=== PATIENT | female | born 1955 | race Caucasian/White ===

== ENCOUNTER 2018-02-09 04:40 | Observation (INO) | payer MEDICAID, OTHER ==
--- NOTE | 2018-02-09 04:54 | ED PDOC ---
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 Pain began 1 hour ago and is associated with nausea and vomiting x1. Pain is stabbing in nature, non radiating and began while sleeping. Pain rated at 10/ 10. Patient was hospitalized for chest pain in 2016 and had negative cardiac work up at that time. Patient refused recommendation of inpatient stress test at that time, and has not received one since. Patient sees Dr. Oneal for cardiology but has not seen him in 9 years since pacemaker placement per patient. Denies abdominal pain, headaches, fevers, and chills. (Angel Chowdary) Past Medical History - Provider Review Nursing Documentation Reviewed: Yes - Infectious Disease Hx of Infectious Diseases: None - Cardiac Hx Hypertension: Yes - Pulmonary Hx Respiratory Disorders: No - Neurological Hx Neurological Disorder: No - HEENT Hx HEENT Disorder: No - Renal Hx Renal Disorder: No - Endocrine/Metabolic Hx Diabetes Mellitus Type 2: Yes - Hematological/Oncological Hx Blood Disorders: No - Integumentary Hx Dermatological Disorder: No - Musculoskeletal/Rheumatological Hx Back Pain: Yes (Chronic back pain) Hx Falls: No - Gastrointestinal Hx Gastrointestinal Disorders: No - Genitourinary/Gynecological Hx Genitourinary Disorders: No - Psychiatric Hx Depression: No Hx Emotional Abuse: No Hx Physical Abuse: No Hx Substance Use: No - Anesthesia Hx Anesthesia: No - Suicidal Assessment Feels Threatened In Home Enviroment: No Family/Social History - Physician Review Nursing Documentation Reviewed: Yes Family/Social History: Unknown Family HX Smoking Status: Never Smoked Hx Alcohol Use: No Hx Substance Use: No Hx Substance Use Treatment: No Allergies/Home Meds Allergies/Adverse Reactions: Allergies No Known Allergies Allergy (Verified 02/09/18 04:45) Home Medications: Home Meds Medication Instructions Recorded Confirmed Glimepiride [Amaryl] 4 mg PO BID 06/05/16 02/09/18 Losartan/Hydrochlorothiazide 1 each PO DAILY 06/05/16 02/10/18 [Losartan-Hctz 100-25 mg Tab] metFORMIN [glucOPHAGE] 1,000 mg PO BID 06/05/16 02/09/18 traMADol [Ultram] 50 mg PO QID 06/05/16 02/09/18 Review of Systems - Physician Review All systems were reviewed & negative as marked: Yes - Review of Systems Constitutional: Normal Eyes: Normal ENT: Normal Respiratory: SOB Cardiovascular: Chest Pain. absent: Palpitations Gastrointestinal: Normal. absent: Abdominal Pain Musculoskeletal: Normal Skin: Normal Neurological: Normal Endocrine: Normal Hemo/Lymphatic: Normal Psychiatric: Normal Physical Exam Vital Signs Reviewed: Yes Temperature: Afebrile Blood Pressure: Hypertensive Pulse: Regular Respiratory Rate: Normal Appearance: Positive for: Well-Appearing, Non-Toxic, Comfortable Pain Distress: None Mental Status: Positive for: Alert and Oriented X 3 - Systems Exam Head: Present: Atraumatic, Normocephalic Pupils: Present: PERRL Extroacular Muscles: Present: EOMI Conjunctiva: Present: Normal Mouth: Present: Moist Mucous Membranes Neck: Present: Normal Range of Motion Respiratory/Chest: Present: Clear to Auscultation, Good Air Exchange. No: Respiratory Distress, Accessory Muscle Use Cardiovascular: Present: Regular Rate and Rhythm, Normal S1, S2, Peripheal Pulses Present. No: Murmurs, Tachycardic Abdomen: No: Tenderness, Distention, Peritoneal Signs Back: Present: Normal Inspection Upper Extremity: Present: Normal Inspection. No: Cyanosis, Edema Lower Extremity: Present: Normal Inspection. No: Edema Neurological: Present: Speech Normal, Motor Func Grossly Intact, Normal Sensory Function Skin: Present: Warm, Dry, Normal Color. No: Rashes Psychiatric: Present: Alert, Oriented x 3, Normal Insight, Normal Concentration Vital Signs Temp Pulse Resp BP Pulse Ox 02/09/18 05:07 85 16 162/79 H 98 02/09/18 04:54 98.3 F 82 16 187/93 H 98 02/09/18 04:51 98.2 F 85 18 187/93 H 99 Medical Decision Making ED Course and Treatment: Impression: Pt seen and evaluated with medical records field technician. Aware and agree with HPI, clinical findings, plan, and management. Pt, whose past medical history includes pacemaker, hypertension, and diabetes, who presents to the Emergency department complaining of chest pain x1 hour with associated nausea and vomiting. Plan: -- Labs, troponin -- Zofran -- Reassess and disposition (Mitch Mc) Impression: This is a 63 year old female with PMH of HT, pacemaker placed in 2008, and DM2 presenting to ED via ambulance for chest pain. Plan: -CBC, CMP -EKG -Troponins Progress: EKG: rate of 89, KS of 220, QRS of 186. No ST changes. 02/09/18 06:11 Patient is resting comfortably, no pain, stable vital signs. (Angel Chowdary) - Lab Interpretations Lab Results: 02/09/18 04:45 02/09/18 04:45 Lab Results 02/09/18 04:45: Hemoglobin A1c 7.8 H 02/09/18 04:45: NT-Pro-B Natriuret Pep 70.6, Triglycerides 241 H, Cholesterol 260 H, LDL Cholesterol Direct 163 H, HDL Cholesterol 41 02/09/18 04:45: Sodium 144, Potassium 4.0, Chloride 99, Carbon Dioxide 29, Anion Gap 20, BUN 23 H, Creatinine 0.7, Est GFR ( Amer) > 60, Est GFR ( Non-Af Amer) > 60, Random Glucose 102, Calcium 10.0, Total Bilirubin 0.5, AST 24 , ALT 33, Alkaline Phosphatase 50, Troponin I < 0.01, Total Protein 8.3, Albumin 4.6, Globulin 3.6, Albumin/Globulin Ratio 1.3 02/09/18 04:45: WBC 10.9 D, RBC 4.88, Hgb 13.9, Hct 41.1, MCV 84.2, MCH 28.5, MCHC 33.8, RDW 13.4, Plt Count 369, MPV 9.4, Gran % 35.8 L, Lymph % (Auto) 51.6 H, [place] % (Auto) 9.2 H, Eos % (Auto) 3.0, Baso % (Auto) 0.4, Gran # 3.91, Lymph # (Auto) 5.6 H, [place] # (Auto) 1.0 H, Eos # (Auto) 0.3, Baso # (Auto) 0.04 - RAD Interpretation Radiology Orders: 02/09/18 04:50 CHEST PORTABLE [RAD] Stat - Medication Orders Current Medication Orders: Aspirin (Aspirin Chewable) 81 mg PO DAILY [facility] Last Admin: 02/10/18 09:05 Dose: 81 mg Atorvastatin Calcium (Lipitor) 80 mg PO DIN [facility] Hydrochlorothiazide (Hydrodiuril) 25 mg PO DAILY [facility] Last Admin: 02/10/18 09:05 Dose: 25 mg Insulin Human Regular (Humulin R Med) 0 units SC ACHS [facility] PRN Reason: Protocol Last Admin: 02/10/18 12:25 Dose: 3 unit [facility] Blood Glucose Document 02/10/18 12:25 (Rec: 02/10/18 12:25 [facility]-[id number]) Blood Glucose Finger Stick Blood Glucose (70-120) 234 Subcutaneous Administrations Document 02/10/18 12:25 (Rec: 02/10/18 12:25 [facility]-[id number]) Charges for Administration # of Subcutaneous Administrations 1 Losartan Potassium (Cozaar) 100 mg PO DAILY [facility] Last Admin: 02/10/18 09:07 Dose: 100 mg Metoprolol Tartrate (Lopressor) 25 mg PO BID [facility] Last Admin: 02/10/18 09:06 Dose: 25 mg [facility] Pulse and Blood Pressure Document 02/10/18 09:06 (Rec: 02/10/18 09:06 [id number] Pulse Pulse Rate (60-90) 73 Blood Pressure Blood Pressure (100/60-150/90) 125/53 Pantoprazole Sodium (Protonix Ec Tab) 40 mg PO ACB [facility] Tramadol HCl (Ultram) 50 mg PO QID [facility] Last Admin: 02/10/18 09:05 Dose: 50 mg MAR Pain Assessment Document 02/10/18 09:05 (Rec: 02/10/18 09:06 [id number] Pain Reassessment Is this a pain reassessment? Yes Presence of Pain Presence of Pain Yes Location Upper or Lower Lower Pain Location Body Site Back Re-Assess: MAR Pain Assessment Document 02/10/18 10:05 (Rec: 02/10/18 11:26 [id number] Pain Reassessment Is this a pain reassessment? Yes Presence of Pain Presence of Pain No Discontinued Medications Atorvastatin Calcium (Lipitor) 40 mg PO DIN [facility] Last Admin: 02/09/18 17:03 Dose: 40 mg Ondansetron HCl (Zofran Inj) 4 mg IVP STAT STA Stop: 07/09/18 04:59 Last Admin: 02/09/18 05:11 Dose: 4 mg IVP Administration Document 02/09/18 05:11 SS (Rec: 02/09/18 05:11 SS [id number]) Charges for Administration # of IVP Administrations 1 Pantoprazole Sodium (Protonix Inj) 40 mg IVP DAILY [facility] Last Admin: 02/10/18 09:05 Dose: 40 mg IVP Administration Document 02/10/18 09:05 (Rec: 02/10/18 09:05 [id number]) Charges for Administration # of IVP Administrations 1 JANIA Risk Score for UA/NSTEMI - JANIA Risk Score Age > 64: NO 3 or more CAD Risk Factors: YES Known CAD (Stenosis greater than 50%): NO Aspirin use in past 7 days: NO Severe Angina: YES EKG ST changes greater than 0.5mm: NO Positive Cardiac Marker: NO JANIA Score: 2 % risk at 14 days of: all cause mortality, new or recurrent [place], or severe recurrent ischemia requiring urgen revascularization: 8% - PA / FIELD ORGANIZER / Resident Statement /DO has reviewed & agrees with the documentation as recorded. MD/DO has examined the patient and agrees with the treatment plan. Disposition/Present on Arrival - Present on Arrival Any Indicators Present on Arrival: No History of DVT/PE: No History of Uncontrolled Diabetes: No Urinary Catheter: No History of Decub. Ulcer: No History Surgical Site Infection Following: None - Disposition Have Diagnosis and Disposition been Completed?: Yes Disposition Time: 08:00 - Disposition Diagnosis: Chest pain Disposition: HOSPITALIZED Patient Problems: Current Active Problems Problem Status Onset Bradycardia Chronic Diabetes mellitus Chronic Diabetic neuropathy associated with type 2 diabetes mellitus Chronic Hyperlipidemia Chronic Hypertension Chronic Condition: GOOD
[2018-02-09 05:19] LABS: ALB/GLOB RATIO 1.3 (1.1-1.8); ALBUMIN 4.6 g/dL (3.0-4.8); ALT/SGPT 33 U/L (7-56); AST/SGOT 24 U/L (14-36); BLOOD UREA NITROGEN 23 mg/dL (7-21); GFR AFRICAN-AMERICAN > 60; GFR NON-AFRICAN AMERICAN > 60
[2018-02-09 05:27] LABS: BASO # 0.04 K/mm3 (0.0-2.0); BASO % 0.4 % (0.0-3.0); EOS # 0.3 (0.0-0.7); GRAN # 3.91 (1.4-6.5); GRAN % 35.8 % (50.0-68.0); HEMOGLOBIN 13.9 g/dL (12.0-16.0); LYMPH # 5.6 (1.2-3.4); LYMPH % 51.6 % (22.0-35.0); MEAN CELL VOLUME 84.2 fl (80.0-105.0); MEAN CORPUSCULAR HEMOGLOBIN 28.5 pg (25.0-35.0); MEAN CORPUSCULAR HGB CONC 33.8 g/dl (31.0-37.0); MEAN PLATELET VOLUME 9.4 fl (7.0-11.0); MONO % 9.2 % (1.0-6.0); RBC 4.88 10^6/uL (3.5-6.1); RED CELL DISTRIBUTION WIDTH 13.4 % (11.5-14.5); WHITE BLOOD COUNT 10.9 10^3/ul (4.5-11.0)
[2018-02-09 05:30] LABS: TROPONIN I < 0.01 ng/mL
--- NOTE | 2018-02-09 07:38 | CP.PCM.HP ---
<Parish Joseph - Last Filed: 02/09/18 16:02> History of Present Illness - History of Present Illness History of Present Illness: Parish Joseph DO - PGY 1 Internal Medicine Rehabilitation Services Counselor - Medicine H&P CC: Chest Pain since this morning 63F w/ PMH of Bradycardia s/p biventricular pacemaker placement @ [facility], DM2, HLD , and HTN presented to ED this AM w/ CC of CP which awoke her from sleep. On admission, patient characterized CP as stabbing, generalized to bilateral sternal border, w/ associated nausea, x1 NBNB vomit, and dyspnea. Sje was previously seen in 2016 for c/o chest pain; cardiac work up at that [facility] was negative except for echo findings Grade 1 abnormal relaxation, and mild pulmonary hypertension. Pt's daughter called EMS and gave 3 aspirin. EKG performed in ED unremarkable ; CXR in ED unremarkable; 1st troponin negative. Patient was evaluated at bedside in ED; states that CP and SOB had resolved at time of evaluation voicing no other complaints at this time. Upon ROS pt denies, PINTO, BV, CP, Palp, Cough, SOB, Abd Pain, NVDC, Limb weakness. Does admit to: LE Edema and orthopnea x6mo PMD: Dr. Teressa Cristobal PMH: as above PSH: pacemaker insertion SH: denies smoking, EtOH or illicits FH: noncontributory Meds: reviewed Allergies: NKA Present on Admission - Present on Admission Any Indicators Present on Admission: No Review of Systems - Constitutional Constitutional: absent: Chills, Fever - EENT Eyes: absent: Blurred Vision - Cardiovascular Cardiovascular: Leg Edema, Orthopnea, Pedal Edema. absent: Chest Pain, Diaphoresis, Dyspnea, Dyspnea on Exertion - Respiratory Respiratory: absent: Cough, Dyspnea - Gastrointestinal Gastrointestinal: absent: Abdominal Pain, Constipation, Diarrhea, Nausea, Vomiting - Musculoskeletal Musculoskeletal: absent: Muscle Weakness, Numbness - Neurological Neurological: Numbness (Chronic x years in toes ). absent: Focal Weakness Past Patient History - Infectious Disease Hx of Infectious Diseases: None - Past Medical History & Family History Past Medical History?: Yes Past Family History: Reviewed and not pertinent - Past Social History Smoking Status: Never Smoked Alcohol: None Drugs: Denies Home Situation {Lives}: With Family - CARDIAC Hx Cardiac Disorders: Yes Hx Hypertension: Yes - PULMONARY Hx Respiratory Disorders: No - NEUROLOGICAL Hx Neurological Disorder: No - HEENT Hx HEENT Problems: No - RENAL Hx Chronic Kidney Disease: No - ENDOCRINE/METABOLIC Hx Diabetes Mellitus Type 2: Yes - HEMATOLOGICAL/ONCOLOGICAL Hx Blood Disorders: No - INTEGUMENTARY Hx Dermatological Problems: No - MUSCULOSKELETAL/RHEUMATOLOGICAL Hx Back Pain: Yes (Chronic back pain) Hx Falls: No - GASTROINTESTINAL Hx Gastrointestinal Disorders: No - GENITOURINARY/GYNECOLOGICAL Hx Genitourinary Disorders: No - PSYCHIATRIC Hx Depression: No Hx Emotional Abuse: No Hx Physical Abuse: No Hx Substance Use: No - ANESTHESIA Hx Anesthesia: No Meds Allergies/Adverse Reactions: Allergies Allergy/AdvReac Type Severity Reaction Status Date / Time No Known Allergies Allergy Verified 02/09/18 04:45 Physical Exam - Constitutional Appears: Well, Non-toxic, No Acute Distress - Head Exam Head Exam: ATRAUMATIC, NORMOCEPHALIC - Eye Exam Eye Exam: EOMI, PERRL. absent: Scleral icterus - ENT Exam ENT Exam: Mucous Membranes Moist Additional comments: dentures - Neck Exam Additional comments: No carotid bruit - Respiratory Exam Respiratory Exam: Clear to Auscultation Bilateral, NORMAL BREATHING PATTERN. absent: Rhonchi, Wheezes - Cardiovascular Exam Cardiovascular Exam: REGULAR RHYTHM, +S1, +S2 - GI/Abdominal Exam GI & Abdominal Exam: Soft. absent: Tenderness - Extremities Exam Extremities exam: Positive for: pedal pulses present (difficult to palpate ) Additional comments: 1+ nonpitting edema BL - Neurological Exam Neurological exam: Alert, CN II-XII Intact, Oriented x3 - Psychiatric Exam Psychiatric exam: Normal Affect, Normal Mood - Skin Skin Exam: Dry, Warm Results - Vital Signs Recent Vital Signs: Last Vital Signs Temp 98.3 F 02/09/18 04:54 Pulse 85 02/09/18 05:07 Resp 16 02/09/18 05:07 BP 162/79 H 02/09/18 05:07 Pulse Ox 98 02/09/18 05:07 - Labs Result Diagrams: 02/09/18 04:45 02/09/18 04:45 Assessment & Plan (2) Bradycardia Status: Chronic (3) Diabetes mellitus Status: Chronic (4) Hypertension Status: Chronic (5) Hyperlipidemia Status: Chronic (6) Diabetic neuropathy associated with type 2 diabetes mellitus Status: Chronic - Assessment and Plan (Free Text) Assessment: 63F w/ PMH of HLD, HTN, DM, and bradycardia s/p pacemaker presenting on 02/09 w/ CC of CP and Dyspnea. Plan: 1. Chest Pain r/o ACS EKG on admission unremarkable for ischemic changes compared to previous; did show ventricular paced rhythm CXR wnl Tropnin negative x1 Continue trending troponin Echo 2016 read as grade 1 abnormal relaxation, mild pulm htn pro-BNP 70.6 ECHO pending TSH pending Stress EKG pending Cardiology consulted 2. Bradycardia s/p BV pacemaker placement Pt. reports no cardiac follow up in many years Cardiology consulted 3. DM Hold home Glimepiride 4 QD Start ISS medium w/ accuchecks A1C 7.8 4. HTN Cont home Losartan-HCTZ 100-25 QD Monitor Vitals Q4 5. HLD Lipid Panel elevated triglycerides, LDL, and total cholesterol ASCVD 20% LFTs wnl, Start Atorvastin 40 QD GI/ SCD Ppx: Protonix + SCD Dispo: monitoring patient under obs for any s/s of ACS continue cardiac work up. Pt. will follow up w/ Dr. Cristobal upon DC Case seen and discussed w/ attending Dr. Adilson Joseph DO - PGY1 Internal Medicine Resident - [id number] <Krysta De Anda - Last Filed: 02/11/18 13:38> Results - Vital Signs Recent Vital Signs: Last Vital Signs Temp 98.2 F 02/10/18 06:00 Pulse 73 02/10/18 09:06 Resp 20 02/10/18 06:00 BP 125/53 L 02/10/18 09:06 Pulse Ox 73 L 02/10/18 09:00 - Labs Result Diagrams: 02/10/18 06:00 02/10/18 06:00 Attending/Attestation - Attestation I have personally seen and examined this patient.: Yes I have fully participated in the care of the patient.: Yes I have reviewed all pertinent clinical information: Yes Notes (Text): 02/11/18 13:35 Medical record note made by the resident after discussion with my direction and input after the patient was personally seen and examined by me. I have reviewed the chart and agree that the record accurately reflects by personal performance of the history, physical exam, data review, and medical decision-making, in the course for the patient. I have also personally directed the plan of care. 63F with PMH , DM2, HLD, and HTN,sp pacemaker is admitted with atypical chest pain, has chest wall tenderness, initial troponins are normnalk.Patient has been evaluated by cardiology and is undergoing nuclear stress test, we will follow up result.We will also follow up Echo.
--- NOTE | 2018-02-09 08:16 | CARD ---
APPROVED REPORT EKG Measurement Heart [id number] <Conclusion> Electronic ventricular pacemaker: 100 % V. Paced and A. Sensed.
[2018-02-09 08:47] LABS: B-TYPE NATRIURETIC PEPTIDE 70.6 pg/mL (0-450)
--- NOTE | 2018-02-09 10:26 | RAD ---
HISTORY: chest pain COMPARISON: Comparison chest 06/05/2016 FINDINGS: LUNGS: No active pulmonary disease. PLEURA: No significant pleural effusion identified, no pneumothorax apparent. CARDIOVASCULAR: Heart size normal. No change bipolar pacemaker/tubercle OSSEOUS STRUCTURES: Old healed fracture deformity left mid clavicle. Degenerative changes both shoulder girdles. Mild multilevel degenerative spondylosis of the thoracic spine VISUALIZED UPPER ABDOMEN: Normal. OTHER FINDINGS: None. IMPRESSION: No active disease.
[2018-02-09 10:57] VITALS: BMI 24.7
[2018-02-09] MEDS ORDERED: Aminophylline 25 mg/ml Inj ONE (11:11)
[2018-02-09] MEDS: Insulin Reg-MEDIUM-Coverage SC SCH ×3 (11:30→23:02)
--- NOTE | 2018-02-09 15:41 | CARD ---
APPROVED REPORT EKG Measurement Heart [id number] <Conclusion> Atrial sensed, ventricular paced rhythm
--- NOTE | 2018-02-09 17:14 | CARD ---
APPROVED REPORT EXAM: Two-dimensional and M-mode echocardiogram with Doppler and color Doppler. INDICATION LV Function:SystolicDiastolic Chest Pain 2D DIMENSIONS Left Atrium (2D)4.1 (1.6-4.0cm)IVSd1.4 (0.7-1.1cm) LVDd4.5 (3.9-5.9cm)PWd1.3 (0.7-1.1cm) LVDs3.1 (2.5-4.0cm)FS (%) 32.4 % LVEF (%)60.8 (>50%) M-Mode DIMENSIONS Aortic Root2.90 (2.2-3.7cm)Aortic Cusp Exc.1.90 (1.5-2.0cm) Aortic Valve AoV Peak Rqbpnkcy719.0cm/Martínez Peak GR.9mmHgAI P 1/2 [id number] Mitral Valve E/A ratio0.0 TDI E/Lateral E'0.0E/Medial E'0.0 Tricuspid Valve TR Peak [id number]/sRAP [id number] Peak Gr.25mmHg [id number] LEFT VENTRICLE The left ventricle is normal size. There is mild concentric left ventricular hypertrophy. The left ventricular function is normal.EF-55-60% There is normal LV segmental wall motion. Transmitral Doppler flow pattern is Grade III-reversible restrictive diastolic dysfunction. No left ventricle thrombus noted on this study. There is no ventricular septal defect visualized. There is no left ventricular aneurysm. There is no mass noted in the left ventricle. RIGHT VENTRICLE The right ventricle is normal size. There is normal right ventricular wall thickness. The right ventricular systolic function is normal. There is a pacemaker lead in the right ventricle. ATRIA The left atrium is mildly dilated. The right atrium size is normal. There is a catheter/pacemaker lead seen in the right atrium. The interatrial septum is intact with no evidence for an atrial septal defect. AORTIC VALVE The aortic valve is thickened but opens well. There is mild to moderate aortic regurgitation. There is no aortic valvular stenosis. There is no aortic valvular vegetation. MITRAL VALVE The mitral valve is thickened but opens well. Mitral annular calcification is moderate. Mitral regurgitation is mild. There is no mitral valve stenosis. There is no evidence of mitral valve prolapse. TRICUSPID VALVE The tricuspid valve leaflets are thickened , but open well. There is mild tricuspid regurgitation.RVSP_35 mmof hg. There is no tricuspid valve stenosis. There is no tricuspid valve prolapse or vegetation. PULMONIC VALVE The pulmonic valve is not well visualized. GREAT VESSELS The aortic root is normal in size. The ascending aorta is normal in size. The pulmonary artery is normal. The IVC is normal in size and collapses >50% with inspiration. PERICARDIAL EFFUSION There is no pleural effusion. There is no pericardial effusion. <Conclusion> The left ventricle is normal size. There is mild concentric left ventricular hypertrophy. The left ventricular function is normal.EF-55-60% There is a pacemaker lead in the right ventricle. There is mild to moderate aortic regurgitation. Mitral regurgitation is mild. There is mild tricuspid regurgitation.RVSP_35 mmof hg. The IVC is normal in size and collapses >50% with inspiration. There is no pericardial effusion.
[2018-02-09 17:29] VITALS: RESP 20
--- NOTE | 2018-02-09 22:36 | CON ---
DATE: 02/09/2018 SERVICE: Cardiology. REASON FOR CONSULTATION: Cardiac evaluation, admitted with chest pain. BRIEF CLINICAL HISTORY: This is a 63-year-old Sami-speaking female with past medical history of diabetes, hypertension, hyperlipidemia, status post pacemaker 9 years ago, being followed initially by Dr. Oneal, [place], now going to follow with Dr. Teressa Cristobal, came in with complaining of right-sided chest pain with tenderness, history of pacemaker. Denies any recent chest pain on exertion, but complaint of shortness of breath. PAST HISTORY: Significant for diabetes, hypertension, hyperlipidemia, status post pacemaker. SOCIAL HISTORY: Denies any history of alcohol abuse. CURRENT MEDICATIONS: The patient is taking tramadol 50 mg 4 times a day, metformin 1 g twice a day, lovastatin 20 mg daily, losartan/hydrochlorothiazide combination 100/25 mg once a day, glimepiride, Amaryl 4 mg daily, aspirin 81 mg daily. PREVIOUS CARDIAC WORKUP: The patient had an echocardiography on 06/06/2016, that showed ejection fraction is within the normal limit, moderate aortic regurgitation, moderately thickened mitral valve, mild pulmonary hypertension, RV systolic pressure 38. REVIEW OF SYSTEMS: As per HPI. PHYSICAL EXAMINATION: GENERAL: Height of the patient 5 feet 9 inches, weight of the patient 168, body mass index 24.8 kg/m2. VITAL SIGNS: Temperature afebrile, heart rate 71, blood pressure 138/72. HEENT: PERRLA. Extraocular muscles intact. NECK: Supple. No carotid bruit. No thyromegaly. CHEST: Clear to auscultation. HEART: S1 and S2, regular. ABDOMEN: Soft. EXTREMITIES: Clubbing and cyanosis negative. LABORATORY DATA: Blood workup as follows: WBC 10.9, hemoglobin 13.9, hematocrit . Chemistry shows sodium 144, potassium 4, chloride 99, carbon dioxide 29, anion gap of 20. BUN 23, creatinine 0.7. Triglycerides 241, total cholesterol 260, LDL 163, HDL 41. Troponin 0.01. IMPRESSION: A 63-year-old female with past medical history significant for diabetes, hypertension, hyperlipidemia, history of pacemaker, noncompliance with followup visit. Lost followup, after seeing Dr. Oneal for a couple of years. Admitted with chest pain, although the chest pain appears atypical given the multiple risk factors of coronary artery disease including hypertension and hyperlipidemia. We will do echo, stress test, lipid profile, TSH, hemoglobin A1c. We will keep n.p.o. Further recommendation depend up on hospital course. We will follow with you. Thank you Dr. Jauregui, for providing us the opportunity in taking care of the patient, Chato Montalvo. Krysta Mitchell MD
--- NOTE | 2018-02-09 22:41 | CARD ---
APPROVED REPORT Protocol: LEXISCAN Test Type: Lexiscan Sestamibi Stress Test Attending Physician: Dr. Krysta Boss Referring Physician: Dr. Krysta De Anda Test Indications: Chest Pain Height:5 ft 9 in Weight:182lbs Medications: Lipitor,HCTZ,Cozaar Medical History: 63 y/o female. Hx of chest pain, shortness of breath,diabetes,hypertension,high cholesterol, pacemaker. Target HR: 158 bpm Resting ECG: Pacemaker Rythm. Resting Heart Rate: 64 bpm Resting Blood Pressure: 144/70mmHg Submaximum (85%): 134 bpm PROCEDURE Pharmacologic stress testing was performed using 0.4mg per 5ml of regadenoson given intravenously over 7-10 seconds. Reversal agent aminophyline 100 mg, given intravenously for Dyspnea. POST EXERCISE Reason for Termination: Protocol completed Target HR: No Max HR: 62 bpm 60% of Maximum Predicted HR: 158 bpm Exercise duration: 00:41 min:sec, 0 Stage Exercise capacity: 1.0METs Max Blood Pressure: 160/60mmHg Blood Pressure response to exercise: resting hypertension - appropriate response Heart Rate response to exercise: appropriate Chest Pain: No, none Angina index: 0 Arrhythmia: No, none ST Change: Yes, Difficult to comment due to Pacemaker Rythm. Deviation: 0 mm TEST SUMMARY [id number]. INFUSIONDOSE 100:[id number]/.0. [id number]/60.0. INTERPRETATION Stress EKG Conclusion: IV LEXISCAN NUCLEAR STRESS TEST NEGATIVE FOR CHEST PAIN. NO ST-T CHANGES SEEN. NUCLEAR SCAN REPORT PENDING. Signed by Krysta Boss Electronically Approved: 02/09/2018 12:19:06 EXAM: Myocardial Perfusion REST/STRESS Stress Test Type: Pharmacologic Imaging Protocol Rest Spect myocardial perfusion imaging was performed in supine position 55 minutes following the injection of 10.3 mCi of Tc-99 Myoview. At peak stress, the patient was injected intravenously with 30.2mCi of Tc-99 tetrofosmin after an infusion time of 0 minutes and 10 seconds. Gated Stress Spect was performed 65 minutes after intravenous Tc-99 Myoview injection. The images were gated to evaluate regional wall motion and calculate ventricular ejection fraction.Images were reconstructed using backfilter projection method in short horizontal and verticle long axis. Spect slices were generated. LV Perfusion The quality of the study is good. The left ventricle is mildly enlarged in size. The right ventricle is unremarkable. The lung uptake is normal. The distribution of tracer reveals moderately decreased perfusion involving apical wall and mildly decreased perfusion involving inferior wall on the stress study. The remainder of the LV myocardium is unremarkable. The rest myocardial perfusion study shows no significant change. Wall Motion Wall motion study shows good contractility of the left ventricle. LVEF = 68%. Conclusion 1. Probably normal SPECT myocardial perfusion study. 2. Fixed, apical and inferior defects are probably due to ( low lying) breast attenuation. However, previous myocardial injury in this region cannot be ruled out. 3. Normal gated wall motion of the left ventricle.
--- NOTE | 2018-02-09 22:44 | CP.PCM.PN ---
Subjective - Date & Time of Evaluation Date of Evaluation: 02/09/18 Time of Evaluation: 22:00 - Subjective Subjective: Nurse paged for elevated third Troponin of 0.13. Repeat EKG was ordered, and was unchanged from previous EKG at noon. Patient denies any current chest pain or shortness of breath. Cardiology (Dr. Boss) was called which recommended Lopressor 25 mg BID and Protonix. Patient currently on Aspirin and statin. Will continue to monitor. Patient was discussed with Dr. Vivian Linda. Objective - Vital Signs/Intake and Output Vital Signs (last 24 hours): Temp Pulse Resp BP Pulse Ox 98.1 F 74 20 142/56 L 98 02/09/18 17:29 02/09/18 22:00 02/09/18 17:29 02/09/18 17:29 02/09/18 05:07 Intake and Output: 02/09/18 02/10/18 18:59 06:59 Intake Total 240 Output Total 1 Balance 239 - Medications Medications: Current Medications Aspirin (Aspirin Chewable) 81 mg PO DAILY [facility] Atorvastatin Calcium (Lipitor) 40 mg PO DIN [facility] Last Admin: 02/09/18 17:03 Dose: 40 mg Hydrochlorothiazide (Hydrodiuril) 25 mg PO DAILY [facility] Last Admin: 02/09/18 14:15 Dose: 25 mg Insulin Human Regular (Humulin R Med) 0 units SC ACHS [facility] PRN Reason: Protocol Last Admin: 02/09/18 17:00 Dose: 1 unit Losartan Potassium (Cozaar) 100 mg PO DAILY [facility] Last Admin: 02/09/18 14:16 Dose: 100 mg Metoprolol Tartrate (Lopressor) 25 mg PO BID [facility] Pantoprazole Sodium (Protonix Inj) 40 mg IVP DAILY [facility] Last Admin: 02/09/18 14:16 Dose: 40 mg Tramadol HCl (Ultram) 50 mg PO QID [facility] Last Admin: 02/09/18 17:09 Dose: 50 mg
[2018-02-10 06:37] VITALS: TEMP 98.2
--- NOTE | 2018-02-10 06:49 | CP.PCM.DIS ---
Provider - Provider Date of Admission: 02/09/18 05:42 Attending physician: Krysta De Anda MD Primary care physician: Teressa Cristobal MD Consults: Cardiology- Alysha Kwok Time Spent in preparation of Discharge (in minutes): 40 Diagnosis - Discharge Diagnosis (1) Chest pain Status: Acute Priority: High (2) Bradycardia Status: Chronic Priority: Medium (3) Diabetes mellitus Status: Chronic Priority: Medium (4) Hypertension Status: Chronic Priority: Low (5) Hyperlipidemia Status: Chronic Priority: Low (6) Diabetic neuropathy associated with type 2 diabetes mellitus Status: Chronic Priority: Low Hospital Course - Lab Results Lab Results: Most Recent Lab Values WBC 10.9 10^3/ul (4.5-11.0) D 02/09/18 04:45 RBC 4.88 10^6/uL (3.5-6.1) 02/09/18 04:45 Hgb 13.9 g/dL (12.0-16.0) 02/09/18 04:45 Hct 41.1 % (36.0-48.0) 02/09/18 04:45 MCV 84.2 fl (80.0-105.0) 02/09/18 04:45 MCH 28.5 pg (25.0-35.0) 02/09/18 04:45 MCHC 33.8 g/dl (31.0-37.0) 02/09/18 04:45 RDW 13.4 % (11.5-14.5) 02/09/18 04:45 Plt Count 369 10^3/uL (120.0-450.0) 02/09/18 04:45 MPV 9.4 fl (7.0-11.0) 02/09/18 04:45 Gran % 35.8 % (50.0-68.0) L 02/09/18 04:45 Lymph % (Auto) 51.6 % (22.0-35.0) H 02/09/18 04:45 [place] % (Auto) 9.2 % (1.0-6.0) H 02/09/18 04:45 Eos % (Auto) 3.0 % (1.5-5.0) 02/09/18 04:45 Baso % (Auto) 0.4 % (0.0-3.0) 02/09/18 04:45 Gran # 3.91 (1.4-6.5) 02/09/18 04:45 Lymph # (Auto) 5.6 (1.2-3.4) H 02/09/18 04:45 [place] # (Auto) 1.0 (0.1-0.6) H 02/09/18 04:45 Eos # (Auto) 0.3 (0.0-0.7) 02/09/18 04:45 Baso # (Auto) 0.04 K/mm3 (0.0-2.0) 02/09/18 04:45 Sodium 144 mmol/L (132-148) 02/09/18 04:45 Potassium 4.0 mmol/L (3.6-5.0) 02/09/18 04:45 Chloride 99 mmol/L (98-107) 02/09/18 04:45 Carbon Dioxide 29 mmol/L (21-33) 02/09/18 04:45 Anion Gap 20 (10-20) 02/09/18 04:45 BUN 23 mg/dL (7-21) H 02/09/18 04:45 Creatinine 0.7 mg/dl (0.7-1.2) 02/09/18 04:45 Est GFR ( Amer) > 60 02/09/18 04:45 Est GFR (Non-Af Amer) > 60 02/09/18 04:45 POC Glucose (mg/dL) 191 mg/dL (65-110) H 02/09/18 16:23 Random Glucose 102 mg/dL (70-110) 02/09/18 04:45 Hemoglobin A1c 7.8 % (4.2-6.5) H 02/09/18 04:45 Calcium 10.0 mg/dL (8.4-10.5) 02/09/18 04:45 Total Bilirubin 0.5 mg/dL (0.2-1.3) 02/09/18 04:45 AST 24 U/L (14-36) 02/09/18 04:45 ALT 33 U/L (7-56) 02/09/18 04:45 Alkaline Phosphatase 50 U/L (38-126) 02/09/18 04:45 Troponin I 0.13 ng/mL H* 02/09/18 19:35 NT-Pro-B Natriuret Pep 70.6 pg/mL (0-450) 02/09/18 04:45 Total Protein 8.3 g/dL (5.8-8.3) 02/09/18 04:45 Albumin 4.6 g/dL (3.0-4.8) 02/09/18 04:45 Globulin 3.6 gm/dL 02/09/18 04:45 Albumin/Globulin Ratio 1.3 (1.1-1.8) 02/09/18 04:45 Triglycerides 241 mg/dL (35-160) H 02/09/18 04:45 Cholesterol 260 mg/dL (130-200) H 02/09/18 04:45 LDL Cholesterol Direct 163 mg/dL (0-129) H 02/09/18 04:45 HDL Cholesterol 41 mg/dL (29-60) 02/09/18 04:45 - Hospital Course Hospital Course: Pt. is a 63F w/ a PMH of Bradycardia s/p biventricular pacemaker placement @ [facility] [place] , DM2, HLD, and HTN presented to ED on 02/09/18 w/ CC of CP which awoke her from sleep. On admission, patient characterized CP as stabbing, generalized to bilateral sternal border, w/ associated nausea, x1 NBNB vomit, and dyspnea. Patient was previously seen in 2016 for similar complaints; at that time cardiac work up was negative except for echo findings of Grade 1 abnormal relaxation, and mild pulmonary hypertension. Pt has also complained that she does fatigue more easily when ambulating w/ associated LE Edema beginning in the last 6-7 mo. On arrival, EKG performed in ED only revealed a ventricular paced rhythm, CXR in ED was also unremarkable for active disease. 1st tropinin was negative. Patient was admitted to obs w/ telemetry monitoring, and started on ASA and Statin. Cardiology was consulted and recommended myocardial stress test as well as echocardiogram. Stress test findings were wnl; echo findings revealed EF of 55-60%, mild concentric hypertrophy. BNP was wnl. Remaining troponins were drawn after patient returned from cardiac studies, and revealed mild elevations of 0.11 and 0.13. Pt was asymptomatic at this time, and subsequent EKG performed 7 PM was unchanged from admission EKG. Overnight telemetry from 79PM to 02/10 only showed two instances of PVC otherwise unremarkable. Cardiology recommended beginning patient on metropolol 25 BID, and protonix. D-Dimer was also resulted as being wnl. Patient was seen this AM at bedside prior to discharge, she was voicing no complaints of chest pain, sob, palpitations, hills, cough, PINTO, abd pain, NVDC. Pt. was instructed to follow up with PCP Dr. Cristobal, and nurse case management Alysha Kwok within 7 days of discharge. Pt. was instructed to start taking ASA81 QD, Metoprolol 25 BID, Protonix 40 QD, and Atorvastatin 80 QD. She was also instructed to continue taking Losartan-Hydralazine 100-25 QD Metformin 850 BID, Glimiperide 4 BID, and Tramadol 50 QID PRN. She was advised to stop taking Lovastatin 20 QD. She was advised to begin lifestyle modification and dietary changes as her Hemoglobin A1C was found to be 7.8. The patient understood and agreed with the discharge plan, and all questions regarding care were answered. - Date & Time of H&P Date of H&P: 02/09/18 Time of H&P: 07:34 Discharge Exam - Head Exam Head Exam: ATRAUMATIC, NORMOCEPHALIC - Eye Exam Eye Exam: EOMI, PERRL. absent: Scleral icterus - ENT Exam ENT Exam: Mucous Membranes Moist Additional comments: dentures - Neck Exam Additional comments: No carotid bruit - Respiratory Exam Respiratory Exam: Clear to PA & Lateral, NORMAL BREATHING PATTERN, UNREMARKABLE. absent: Wheezes, Respiratory Distress - GI/Abdominal Exam GI & Abdominal Exam: Normal Bowel Sounds, Soft. absent: Tenderness - Extremities Exam Additional comments: Pedal pulses difficult to palpate, 1+ non pitting edema BL - Neurological Exam Neurological exam: Alert, CN II-XII Intact, Oriented x3 - Psychiatric Exam Psychiatric exam: Normal Affect, Normal Mood - Skin Skin Exam: Dry, Intact, Warm Discharge Plan - Discharge Medications Prescriptions: Atorvastatin [Lipitor] 80 mg PO DIN 14 Days #14 tab Metoprolol Tartrate [Lopressor] 25 mg PO BID 14 Days #28 tab Pantoprazole [Protonix EC Tab] 40 mg PO ACB 14 Days #14 ect - Follow Up Plan Condition: GOOD Disposition: HOME/ ROUTINE Instructions: Type 2 Diabetes, Diabetes Exchange Diet, Chest Pain (DC), Chest Pain (DC), Chest Pain (GEN) Additional Instructions: 1. Please follow up with your primary care doctor within 7 days of discharge. 2. Please follow up with your nurse case management Alysha Kwok within 7 days of discharge 3. Please start taking the following medications at home: Metorpolol 25 BID, Aspirin 81 Daily, Atorvastatin 80 Daily 4. Please continue taking the following home medications: Losartan-Hydralazine 100-25 Daily, Metformin 850 BID, Glimiperide 4 BID, Tramadol 50 QID PRN. 5. Please stop taking the following home medications: Lovastatin 20 QD 6. Your A1C was 7.8; please consider lifestyle modification and dietary changes for your diabetes. 7. Please comply with your medications as above, if you have any questions please follow up with your primary care physician. Referrals: Krysta Mitchell MD [Staff Provider] - Teressa Cristobal MD [Primary Care Provider] -
[2018-02-10] MEDS: Insulin Reg-MEDIUM-Coverage SC SCH ×2 (08:18→12:25)
[2018-02-10 08:40] LABS: BASO # 0.02 K/mm3 (0.0-2.0); BASO % 0.3 % (0.0-3.0); EOS # 0.2 (0.0-0.7); EOS % 2.5 % (1.5-5.0); GRAN # 2.73 (1.4-6.5); GRAN % 38.6 % (50.0-68.0); HEMOGLOBIN 12.3 g/dL (12.0-16.0); LYMPH # 3.5 (1.2-3.4); LYMPH % 49.5 % (22.0-35.0); MEAN CELL VOLUME 83.9 fl (80.0-105.0); MEAN CORPUSCULAR HGB CONC 33.3 g/dl (31.0-37.0); MEAN PLATELET VOLUME 9.4 fl (7.0-11.0); MONO # 0.6 (0.1-0.6); MONO % 9.1 % (1.0-6.0); RBC 4.4 10^6/uL (3.5-6.1); RED CELL DISTRIBUTION WIDTH 13.2 % (11.5-14.5); WHITE BLOOD COUNT 7.1 10^3/ul (4.5-11.0)
[2018-02-10 08:51] LABS: ALB/GLOB RATIO 1.3 (1.1-1.8); ALBUMIN 3.9 g/dL (3.0-4.8); ALT/SGPT 26 U/L (7-56); AST/SGOT 17 U/L (14-36); BLOOD UREA NITROGEN 14 mg/dL (7-21); CALCIUM 9.6 mg/dL (8.4-10.5); GFR AFRICAN-AMERICAN > 60; GFR NON-AFRICAN AMERICAN > 60
[2018-02-10 09:11] VITALS: BP 125/53; PULSE 73
[2018-02-10 10:36] LABS: INR 1.04 (0.93-1.08); PROTHROMBIN TIME 12.1 SECONDS (9.4-12.5)
[2018-02-10 15:26] VITALS: O2SAT 73
--- NOTE | 2018-02-10 16:47 | CARD ---
APPROVED REPORT Date of service: 02/09/2018 EKG Measurement Heart [id number] <Conclusion> Atrial sensed, ventricular paced rhythm
--- NOTE | 2018-02-11 05:37 | PN ---
DATE: 02/10/2018 REASON FOR CONSULTATION: Cardiac evaluation, admitted with chest pain, normal stress test. SUBJECTIVE: The patient denies any chest pain, shortness of breath, or any palpitations. Information obtained through the maintenance mechanic 2nd shift,certified technician specialist mary, hazardous materials waste technician. OBJECTIVE: GENERAL: Lying flat on the bed, not in apparent distress. VITAL SIGNS: Temperature afebrile, heart rate 73, blood pressure 125/53. HEENT: PERRLA. Extraocular muscles intact. NECK: Supple. No carotid bruit. No thyromegaly. CHEST: Clear to auscultation. HEART: S1 and S2, regular. ABDOMEN: Soft. EXTREMITIES: Clubbing and cyanosis negative. LABORATORY DATA: Blood workup as follows, WBC 7.1, hemoglobin 12.3, hematocrit 36.9, platelet count 298. Chemistry shows sodium 140, potassium 3.7, chloride of 101, carbon dioxide 28, anion gap of 17, BUN 14, creatinine 0.5. Troponin first 0.01, repeat is 0.12. Repeat troponin yesterday evening 0.13 after the stress test. The patient had a stress test done 02/09/2018 as well as a Lexiscan and it was probably normal myocardial perfusion study, fixed apical inferior defect probably due to low lying breast attenuation. No ischemia noted. Ejection fraction calculated at 68%. The patient had echocardiography done on 02/09/2018 that showed the ejection fraction of 60%, pacemaker lead noted in right ventricle. RV systolic pressure of 35, mild mitral regurgitation, mild tricuspid regurgitation. IMPRESSION AND PLAN: Atypical chest pain, tenderness on the chest given multiple risk factors of coronary artery disease. The patient underwent a stress test that is normal. Not sure about the borderline troponin. Discussed with Dr. De Anda, suggest to follow up with Dr. Oneal for pacemaker. TSH is 1.02. Hemoglobin A1c 7.8, needs aggressive medical treatment also. LDL 163, triglycerides 241, cholesterol total of 260. Suggest to continue baby aspirin, losartan and we will increase atorvastatin to 80 mg daily. We will follow with you. Continue beta-serg. Thank you Dr. De Anda for providing us the opportunity in taking care of the patient, Katia Reis. Krysta Mitchell MD [facility] # [id number] [place]
[2018-02-11] MEDS ORDERED: Pantoprazole 40 mg EC Tab PO SCH (07:30)
== END 2018-02-10 16:47 | disposition home or self-care (01) ==
LOC: ED 04:40 → ERH 05:42 → 2RNO 07:13
PROVIDERS: ADMIT Internal Medicine; ATTEND Internal Medicine
DX: R07.89 Other chest pain (principal); I10 Essential (primary) hypertension; E78.5 Hyperlipidemia, unspecified; I27.20 Pulmonary hypertension, unspecified; R00.1 Bradycardia, unspecified; E11.40 Type 2 diabetes mellitus with diabetic neuropathy, unspecified; Z91.19 Patient's noncompliance with other medical treatment and regimen; Z95.0 Presence of cardiac pacemaker
CPT/HCPCS: 36415; 71045; 78452; 80053; 80061; 82948; 83036; 83880; 84443; 84484; 85025; 85378; 85610; 85730; 93005; 93017; 93306; 96374; 99283; A9502; C9113; G0378; J2405